=== PATIENT | female | born 1990 | race Two or more races ===

== ENCOUNTER 2019-11-28 16:43 | Emergency (ER) | payer SELFPAY ==
[2019-11-28] MEDS ORDERED: Acetaminophen/HYDROcodone 325-5 MG Tab PO ONE (17:20)
[2019-11-28] MEDS ORDERED: Ibuprofen 800 MG Tab PO ONE (17:33)
--- NOTE | 2019-11-28 17:49 | EDM.PDOC ---
ED HPI GENERAL MEDICAL PROBLEM - General Chief Complaint: Lower Extremity Injury/Pain Stated Complaint: LT KNEE INJURY Time Seen by Provider: 11/28/19 17:16 Source of Information: Reports: Patient, RN Notes Reviewed - History of Present Illness INITIAL COMMENTS - FREE TEXT/NARRATIVE: 29-year-old female slipped on ice and fell landing on left knee about 5 hours ago. She has had severe pain swelling and bruising of the anterior aspect left knee. No other pain or injury from this incident. Left Knee Pain Score (Numeric/FACES): 6 - Related Data Allergies Allergy/AdvReac Type Severity Reaction Status Date / Time No Known Allergies Allergy Verified 11/28/19 16:51 Home Meds: Home Meds Etonogestrel [Nexplanon] 1 11/28/19 [History] Multivitamin [Multi-Vitamin Daily] 1 each PO DAILY 11/28/19 [History] Past Medical History HEENT History: Reports: Impaired Vision Cardiovascular History: Reports: None Respiratory History: Reports: None Gastrointestinal History: Reports: None Genitourinary History: Reports: None PRE CERTIFICATION SPECIALIST History: Reports: None Musculoskeletal History: Reports: Fracture Neurological History: Reports: Concussion Psychiatric History: Reports: None Endocrine/Metabolic History: Reports: Obesity/BMI 30+ Hematologic History: Reports: None Immunologic History: Reports: None Oncologic (Cancer) History: Reports: None Dermatologic History: Reports: None - Infectious Disease History Infectious Disease History: Reports: None - Past Surgical History HEENT Surgical History: Reports: Oral Surgery Social & Family History - Family History Family Medical History: Noncontributory Endocrine/Metabolic: Reports: Diabetes, type II Oncologic: Reports: Other (See Below) Other Oncologic Family History: unsure of type but lost an aunt to cancer - Tobacco Use Smoking Status *Q: Former Smoker Used Tobacco, but Quit: Yes Month/Year Tobacco Last Used: 08/20 - Caffeine Use Caffeine Use: Reports: Soda - Recreational Drug Use Recreational Drug Use: No Review of Systems - Review of Systems Review Of Systems: See Below Constitutional: Reports: No Symptoms Respiratory: Reports: No Symptoms GI/Abdominal: Denies: Nausea, Vomiting Musculoskeletal: Reports: Joint Pain Skin: Reports: Bruising Neurological: Denies: Numbness (Left anterior knee), Tingling, Weakness ED EXAM, GENERAL - Physical Exam Exam: See Below General Appearance: Alert, Moderate Distress Head: Atraumatic Neck: Supple Respiratory/Chest: No Respiratory Distress, Lungs Clear Extremities: Joint Swelling (There is swelling of the anterior aspect left knee , moderate bruising, quite severe tenderness anterior left knee), Limited Range of Motion (Knee otherwise nontender), Other (Left knee otherwise nontender, remainder of leg ankle foot all nontender) Neurological: Alert ( left knee), Oriented, No Motor/Sensory Deficits Skin Exam: Warm, Dry, Normal Color Course - Vital Signs Last Recorded V/S: Last Vital Signs Temp 98.0 F 11/28/19 16:56 Pulse 96 11/28/19 16:56 Resp 18 11/28/19 16:56 BP 112/67 11/28/19 16:56 Pulse Ox 98 11/28/19 16:56 - Orders/Labs/Meds Orders: Active Orders 24 hr Category Date Time Status Knee Min 4V Lt [CR] Stat Exams 11/28/19 17:47 Taken Meds: Medications Discontinued Medications Generic Name Dose Route Start Last Admin Trade Name Freq PRN Reason Stop Dose Admin Hydrocodone Bitart/Acetaminophen 1 tab 11/28/19 17:20 11/28/19 17:31 [place] 325-5 Mg PO 11/28/19 17:21 Not Given ONETIME ONE Ibuprofen 800 mg 11/28/19 17:33 11/28/19 17:38 Motrin PO 11/28/19 17:34 800 mg ONETIME ONE Administration - Re-Assessments/Exams Free Text/Narrative Re-Assessment/Exam: 11/28/19 18:26. No visible fracture on x-ray, will treat with Alvin wrap, crutches, discharge instructions as documented. Departure - Departure Time of Disposition: 18:17 Disposition: Home, Self-Care 01 Condition: Fair Clinical Impression: Fall Qualifiers: Encounter type: initial encounter Qualified Code(s): W19.XXXA - Unspecified fall, initial encounter Contusion of knee, left Qualifiers: Encounter type: initial encounter Qualified Code(s): S80.02XA - Contusion of left knee, initial encounter - Discharge Information Instructions: Contusion, [id number] Referrals: PCP,None [Primary Care Provider] - Forms: ED Department Discharge Additional Instructions: Alvin wrap him a ice packs and elevation for swelling, Advil or ibuprofen 600 mg 2 -3 times daily, take that with food so that does not upset her stomach. Take Tylenol in between doses also 2-3 times daily for extra pain relief as needed. Follow up with your medical provider if not a lot better within 5-7 days as expected. If you are still having pain, swelling or any sign of knee instability then you will need Orthopedic referral. Sepsis Event Note - Evaluation Sepsis Screening Result: No Definite Risk - Focused Exam Vital Signs: Vital Signs Temp Pulse Resp BP Pulse Ox 11/28/19 16:56 98.0 F 96 18 112/67 98 Date Exam was Performed: 11/28/19 Time Exam was Performed: 18:26 - My Orders Last 24 Hours: My Active Orders 11/28/19 17:47 Knee Min 4V Lt [CR] Stat - Assessment/Plan Last 24 Hours: My Active Orders 11/28/19 17:47 Knee Min 4V Lt [CR] Stat
--- NOTE | 2019-11-30 07:12 | CR ---
Left knee: Four views of the left knee were obtained. Comparison: No previous study. Soft tissue swelling is noted anteriorly. No joint effusion is seen. Medial and lateral joint compartments are maintained in height. No acute fracture, dislocation or other bony abnormality is seen. Impression: 1. Soft tissue swelling anteriorly. 2. Left knee study is otherwise unremarkable. Diagnostic code #2 This report was dictated in [place] Standard Time
== END 2019-11-28 18:32 | disposition home or self-care (01) ==
LOC: JD.ED 16:43
DX: S80.02XA Contusion of left knee, initial encounter (principal); E66.9 Obesity, unspecified; Z87.891 Personal history of nicotine dependence; W00.0XXA Fall on same level due to ice and snow, initial encounter
CPT/HCPCS: 73564; 99283; A9270